=== PATIENT | male | born 1990 | race Caucasian/White ===

== ENCOUNTER 2019-11-17 18:17 | Emergency (ER) | payer SELFPAY ==
[~2019-11-17] VITALS: Ht 180.3 cm; Wt 117.0 kg
[2019-11-17 18:24] VITALS: BP 150/99; Ht 180.3 cm; Wt 117.0 kg
== END 2019-11-17 19:03 | disposition home or self-care (01) ==
LOC: ED 18:17
DX: S61.552A Open bite of left wrist, initial encounter (principal); W54.0XXA Bitten by dog, initial encounter; Y93.89 Activity, other specified; Y92.89 Other specified places as the place of occurrence of the external cause; Y99.8 Other external cause status
CPT/HCPCS: 90715

== ENCOUNTER 2019-11-19 18:38 | Emergency (ER) | payer SELFPAY ==
[~2019-11-19] VITALS: Ht 180.3 cm; Wt 117.0 kg
[2019-11-19 18:44] VITALS: Ht 180.3 cm; Wt 117.0 kg
[2019-11-19 19:11] VITALS: BP 128/89
== END 2019-11-19 19:11 | disposition home or self-care (01) ==
LOC: ED 18:38
DX: S61.452D Open bite of left hand, subsequent encounter (principal); W54.0XXD Bitten by dog, subsequent encounter